=== PATIENT | male | born 1955 | race Caucasian/White ===

== ENCOUNTER 2020-11-24 09:41 | Emergency (ER) | payer BC, SELFPAY ==
--- NOTE | 2020-11-24 09:43 | ED.URI ---
HPI - URI/Sore Throat General Chief Complaint: Upper Respiratory Infection Stated Complaint: WHITE PATCHES IN THROAT Time Seen by Provider: 11/24/20 09:56 Source: patient and RN notes reviewed Mode of arrival: ambulatory Limitations: no limitations History of Present Illness HPI Narrative: 65-year-old male presents with concern for sore throat. Reports 6-day history of sore throat, recently noticed white patches in his throat. Reports he does not have tonsils, has had a tonsillectomy. Reports he is currently finishing a dose of Augmentin that he received for a stye in his eye. Reports he has 2 days left in his course of antibiotics. Reports he has been fully vaccinated for Covid, receiving his last vaccination more than 2 weeks ago. He denies fever, body aches, chills, sweats, cough, shortness of breath. Reports he has been using Flonase, possibly overusing Flonase doing 3-4 pumps in each nostril. Reports he is also been taking an antihistamine. MD elicited complaint: sore throat Related Data Allergies Allergy/AdvReac Type Severity Reaction Status Date / Time cephalexin Allergy Unknown possible Verified 11/10/20 11:22 rash Review of Systems Review of Systems: Narrative: CONSTITUTIONAL: Denies malaise, chills, sweats, or fever. EYES: Denies visual changes, redness, or discharge. ENT: Denies rhinorrhea, congestion, sinus pain, otalgia. Reports sore throat. CARDIOVASCULAR: Denies chest pain, palpitations, or edema. RESPIRATORY: Denies cough or dyspnea. GASTROINTESTINAL: Denies abdominal pain, nausea, vomiting, diarrhea SKIN: Denies rash or itching. MUSCULOSKELETAL: Denies myalgia. NEUROLOGIC: Denies headache. All systems reviewed & are unremarkable except as noted in HPI and below PMFSH Family History Family History Mother Family history of multiple sclerosis Family history of osteoporosis Family history of elevated blood lipids Father Diabetes mellitus Family history of elevated blood lipids Family history of malignant neoplasm, Onset Age: 60 Grandparent Family history of cardiovascular disease Cerebrovascular accident Other Family history of lung cancer Social History Social History Alcohol intake: current Comments At time of signature, agree with nursing past medical, surgical, social and family history. There is no relevant family history pertinent to the presenting complaint Exam Narrative: Exam Narrative: GENERAL: Well-appearing, well-nourished, and in no acute distress. HEAD: Normocephalic EYES: PERRLA, conjunctivae clear ENT: Nares clear, turbinates erythematous, clear discharge. Mucous membranes moist. TM pearly carmen with sharp light reflex bilaterally; no tragal tenderness. Oropharynx not erythematous without lesions. Tonsils not present, no exudate, no drooling, no hoarseness, no trismus, uvula midline. NECK: Supple. No lymphadenopathy CHEST: Clear to auscultation, breath sounds equal. No wheezing, rhonchi, rales, or stridor. No respiratory distress, speaks in full sentences. HEART: Regular rate and rhythm. No murmur heard. SKIN: Warm, dry, no rash. NEURO: Alert and oriented x3. PSYCH: Normal mood and affect Course Course Emergency Course: Patient is aware of diagnosis, understands and agrees to treatment plan. Anticipatory guidance given. Patient agrees to follow-up as directed and is aware of reasons to seek care at the emergency department. Portions of this record may have been created with voice recognition software Vital Signs Vital signs: Vital Signs Temperature 97.9 F 11/24/20 09:49 Pulse Rate 84 11/24/20 09:49 Respiratory Rate 16 11/24/20 09:49 Blood Pressure 129/81 11/24/20 09:49 Pulse Oximetry 98 11/24/20 09:49 Temperature 97.9 F 11/24/20 09:49 Pulse Rate 84 11/24/20 09:49 Respiratory Rate 16 11/24/20 09:49 Blood Pressure 129
[2020-11-24 09:49] VITALS: BP 129/81; PULSE 84; RESP 16; TEMP 36.6; O2SAT 98
== END 2020-11-24 10:15 | disposition home or self-care (01) ==
PROVIDERS: Emergency Provider Nurse Practitioner; PCP Family Medicine
DX: J02.9 Acute pharyngitis, unspecified (principal); E78.00 Pure hypercholesterolemia, unspecified; E03.9 Hypothyroidism, unspecified
CPT/HCPCS: 87081; 87880; 99213; G0463

== ENCOUNTER 2021-01-15 10:38 | Emergency (ER) | payer BC, SELFPAY ==
[2021-01-15 10:45] VITALS: BP 119/69; PULSE 68; RESP 18; TEMP 36.5; O2SAT 99
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
== END 2021-01-15 11:32 | disposition home or self-care (01) ==
PROVIDERS: Emergency Provider Nurse Practitioner; PCP Family Medicine
DX: S39.012A Strain of muscle, fascia and tendon of lower back, initial encounter (principal); X50.0XXA Overexertion from strenuous movement or load, initial encounter; T20.40XA Corrosion of unspecified degree of head, face, and neck, unspecified site, initial encounter; E78.00 Pure hypercholesterolemia, unspecified; E03.9 Hypothyroidism, unspecified
CPT/HCPCS: 99213; A9270; G0463

== ENCOUNTER 2021-02-16 01:25 | Day surgery (SDC) | payer BC, SELFPAY ==
[2021-02-02 11:22] VITALS: BMI 27.1
[2021-02-16 11:09] VITALS: BP 118/82; PULSE 72; RESP 18; TEMP 35.7; O2SAT 98
--- NOTE | 2021-02-16 11:16 | WPDGICN ---
Assessment and Plan Assessment and plan (1) Encounter for screening colonoscopy: Code(s): Z12.11 - Encounter for screening for malignant neoplasm of colon Status: Acute Assessment and Plan: Is been sometime since last colonoscopy. Plan is for screening colonoscopy at this time. Further recommendations will be given after endoscopy. (2) Change in bowel habit: Code(s): R19.4 - Change in bowel habit Status: Acute Assessment and Plan: Patient has change in bowel habits include narrowed stool cramps and some weight loss. Plan is for colonoscopy excluded cancer. Irritable bowel syndrome is also not excluded. High fiber supplements may be a beneficial if endoscopy is unremarkable. Further recommendations will be given after colonoscopy. GI Consult Note Consult date/time: 02/16/21 11:16 HPI: Jaleel Guerrier is a 65 year old male Complains of alteration in his bowel habits. He is referred for screening colonoscopy. Patient reports that since April of last year his stools have been narrowed he notices occasional cramping in his abdomen. Often in the left lower quadrant. Several weeks ago he had 2 episodes where a spot of bright red blood was noticed in his bowel movement. Patient reports over the last year is loss perhaps 30 lb because he is eating less. He was advised to try fiber. But after taking this 1 day he stopped because of cramps. Patient noticed a little bit of mucus in his stools on occasion. Patient states he has had several previous colonoscopies that were unremarkable. He is quite concerned about the cramps and change in bowel habits in is referred today for colonoscopy. Review of Systems Review of Systems: All systems reviewed & are unremarkable except as noted in HPI and below PMFSH Family History Family History Mother Family history of multiple sclerosis Family history of osteoporosis Family history of elevated blood lipids Father Diabetes mellitus Family history of elevated blood lipids Family history of malignant neoplasm, Onset Age: 60 Grandparent Family history of cardiovascular disease Cerebrovascular accident Other Family history of lung cancer Social History Social History Alcohol intake: current Substance use type: does not use Living arrangements: with family Gender identity (if verbalized by the patient): Male Meds Home Medications and Allergies Home Medications Medication Instructions Recorded Confirmed Type simvastatin 20 mg tablet 20 mg PO DAILY #90 tablet 09/22/19 02/02/21 Rx alprazolam 0.25 mg tablet 0.25 mg PO TID PRN #30 tablet 10/30/20 02/02/21 Rx aspirin [Adult Low Dose Aspirin] 81 mg PO DAILY 01/15/21 02/02/21 History cyclobenzaprine 10 mg PO TID PRN #20 tablet 01/15/21 02/02/21 Rx levothyroxine [Euthyrox] 100 mcg PO DAILY 02/02/21 02/02/21 History Allergies Allergy/AdvReac Type Severity Reaction Status Date / Time cephalexin Allergy Unknown possible Verified 02/16/21 11:07 rash Vital Signs Vital Signs - 24 hr 02/16/21 11:09 Temperature 96.3 F L Pulse Rate 72 Respiratory Rate 18 Blood Pressure 118/82 Pulse Oximetry 98 Exam Narrative: Exam Narrative: Physical exam reveals patient be alert. Vital signs stable. HEENT exam is unremarkable. Patient is anicteric. Lungs are clear to auscultation and percussion. Heart is without murmur or extra sounds. Abdominal exam bowel sounds are present soft nontender with no hepatosplenomegaly. Digital external rectal exam is normal.
[2021-02-16] MEDS: LACTATED RINGERS 1,000 ML 150 ML IV CONT (11:19)
--- NOTE | 2021-02-16 11:37 | WPDANESEPPF ---
Anes - Initial Pre Proc Eval Procedure: Operation Date: 02/16/21 12:00 Proposed Procedures p Screening Colonoscopy - Jamal Nelson MD Date/Time: 02/16/21 11:37 Surgeon: Jamal Nelson MD Pre Op Diagnosis: neoplasm screening Patient Data Age: 65 Gender: M Height: 1.73 m Weight: 77.7 kg Last Vital Signs Temp 96.3 F L 02/16/21 11:09 Pulse 72 02/16/21 11:09 Resp 18 02/16/21 11:09 BP 118/82 02/16/21 11:09 Pulse Ox 98 02/16/21 11:09 Allergies Allergy/AdvReac Type Severity Reaction Status Date / Time cephalexin Allergy Unknown possible Verified 02/16/21 11:07 rash Home Medications Medication Instructions Recorded Confirmed Type simvastatin 20 mg tablet 20 mg PO DAILY #90 tablet 09/22/19 02/02/21 Rx alprazolam 0.25 mg tablet 0.25 mg PO TID PRN #30 tablet 10/30/20 02/02/21 Rx aspirin [Adult Low Dose Aspirin] 81 mg PO DAILY 01/15/21 02/02/21 History cyclobenzaprine 10 mg PO TID PRN #20 tablet 01/15/21 02/02/21 Rx levothyroxine [Euthyrox] 100 mcg PO DAILY 02/02/21 02/02/21 History Patient hx anesthesia problems: none Family hx anesthesia problems: none PMFSH Past Medical History Medical History (Updated 02/16/21 @ 11:24 by Himanshu Jauregui MD) Arthritis Hypothyroid Hypothyroidism, unspecified Obstructive sleep apnea (adult) (pediatric) Other hyperlipidemia Family History Family History Mother Family history of multiple sclerosis Family history of osteoporosis Family history of elevated blood lipids Father Diabetes mellitus Family history of elevated blood lipids Family history of malignant neoplasm, Onset Age: 60 Grandparent Family history of cardiovascular disease Cerebrovascular accident Other Family history of lung cancer Social History Social History Alcohol intake: current Substance use type: does not use Living arrangements: with family Gender identity (if verbalized by the patient): Male Anes - Eval Final PreProcedure Day of Procedure 02/16/21 11:37 Patient weight: normal Heart: regular rate and rhythm Lungs: clear to auscultation Airway: Mallampati scale class II Neurological: alert and oriented Last oral intake: >/= 8 hours ASA classification: III Emergent: no Anesthetic plan: proceed Anesthesia type and monitoring: general GIVS and standard monitoring Informed Consent: The patient's anesthetic plan and its attendant risks and benefits were discussed with the patient/family/POA. Questions were solicited and answers provided to the satisfaction of the patient/family/POA.
[2021-02-16 12:02] VITALS: BP 105/60; PULSE 75; RESP 16; O2SAT 96
[2021-02-16 12:12] VITALS: BP 114/64; PULSE 73; RESP 19; O2SAT 97
[2021-02-16 12:22] VITALS: BP 119/79; PULSE 75; RESP 24; O2SAT 97
[2021-02-16 12:32] VITALS: BP 122/84; PULSE 68; RESP 16; O2SAT 98
== END 2021-02-16 12:47 | disposition home or self-care (01) ==
PROVIDERS: PCP Family Medicine; Visit Provider Internal Medicine Gastroenterology
PROC: 0DJD8ZZ Inspection of Lower Intestinal Tract, Via Natural or Artificial Opening Endoscopic (ICD-10-PCS; CPT 45378; principal; 2021-02-16 12:00)
DX: Z12.11 Encounter for screening for malignant neoplasm of colon (principal); R19.4 Change in bowel habit; Z79.82 Long term (current) use of aspirin; E03.9 Hypothyroidism, unspecified; M19.90 Unspecified osteoarthritis, unspecified site; G47.33 Obstructive sleep apnea (adult) (pediatric); E78.5 Hyperlipidemia, unspecified
CPT/HCPCS: 45378; J2704; J7120

== ENCOUNTER 2021-12-14 12:02 | Outpatient (CLI) | payer BC, SELFPAY ==
--- NOTE | ~2021-12-14 | XR_ITS ---
XR shoulder LT min 2V 12/14/2021 12:22 Indication: Left shoulder pain Procedure: 4 views left shoulder Comparison: No prior studies for comparison. Findings: No fracture, subluxation or dislocation. No significant soft tissue abnormality. No foreign bodies. There is anatomic alignment. Impression: 1: No significant bone or joint abnormality. Reviewed, dictated and finalized at location B. Impression: 1: No significant bone or joint abnormality.
== END 2021-12-14 12:03 | disposition home or self-care (01) ==
PROVIDERS: PCP Family Medicine; Visit Provider Physician Assistant
DX: M25.512 Pain in left shoulder (principal)
CPT/HCPCS: 73030

== ENCOUNTER 2022-01-21 13:35 | Emergency (ER) | payer BC, SELFPAY ==
[2022-01-21 13:42] VITALS: BP 117/73; PULSE 71; RESP 18; TEMP 37.2; O2SAT 99
--- NOTE | 2022-01-21 14:25 | ED.BACK ---
HPI - Back Pain/Injury General Chief Complaint: Back Pain/Injury Stated Complaint: back pain Time Seen by Provider: 01/21/22 14:14 Source: patient Mode of arrival: ambulatory Limitations: no limitations History of Present Illness HPI Narrative: Patient presents today complaining of waking up yesterday morning with low back pain bilaterally. States his pain today is slightly improved since yesterday. The day prior to onset of symptoms, he had increased the amount of weight he was lifting at home and the amount of repetitions, and believes this may have contributed to his pain, although he cannot pinpoint an exact injury or trauma. Denies radiation of the pain. Denies numbness or tingling in his legs or feet, or genitals. Denies any loss of bowel or bladder control. He currently rates his pain 5/10, which increases significantly when he moves from sitting to standing position. He takes naproxen on a daily basis, and cannot say that it is working for his acute pain. Related Data Home Medications Medication Instructions Recorded Confirmed aspirin 81 mg tablet 81 mg PO DAILY 01/15/21 01/21/22 cholecalciferol (vitamin D3) 50 50 mcg PO DAILY 03/09/21 01/21/22 mcg (2,000 unit) chewable tablet fluticasone propionate 50 2 spray intranasal DAILY 03/09/21 01/21/22 mcg/actuation nasal spray,suspension (Flonase Allergy Relief) loratadine 10 mg tablet (Claritin) 10 mg PO DAILY 03/09/21 01/21/22 magnesium oxide 400 mg PO DAILY 03/09/21 01/21/22 kuyzgkyvrjea-ysh-abrzf acid-vit 1 tablet PO DAILY 03/09/21 01/21/22 K-lycop 400 mcg-20 mcg-370 mcg tablet (Men's 50 Plus Multivitamin) naproxen sodium 220 mg capsule 220 mg PO BID 03/09/21 01/21/22 vitamin B complex 1 cap PO DAILY 03/09/21 01/21/22 Allergies Allergy/AdvReac Type Severity Reaction Status Date / Time cephalexin Allergy Unknown possible Verified 01/21/22 13:50 rash Review of Systems Review of Systems: CONSTITUTIONAL: Denies body aches, fever, chills, or sweats. EYES: Denies visual changes, redness, or discharge. ENT: Denies rhinorrhea, congestion, sore throat, or otalgia. CARDIOVASCULAR: Denies chest pain, palpitations, or edema. RESPIRATORY: Denies cough or dyspnea. GASTROINTESTINAL: Denies abdominal pain, nausea, vomiting, or diarrhea. GENITOURINARY: Denies dysuria or hematuria. SKIN: Denies rash, itching, or wounds. MUSCULOSKELETAL: Denies joint pain, or myalgia.+ Low back pain NEUROLOGIC: Denies headache, numbness, tingling, or weakness. PSYCH: Denies depression or anxiety. PMFSH Past Medical History Medical History Arthritis Hypothyroid Hypothyroidism, unspecified Obstructive sleep apnea (adult) (pediatric) Other hyperlipidemia Family History Family History Mother Family history of multiple sclerosis Family history of osteoporosis Family history of elevated blood lipids Father Diabetes mellitus Family history of elevated blood lipids Family history of malignant neoplasm, Onset Age: 60 Grandparent Family history of cardiovascular disease Cerebrovascular accident Other Family history of lung cancer Social History Social History Second hand tobacco smoke exposure: No Alcohol intake: current Drinks per week: 3 Substance use type: does not use Gender identity (if verbalized by the patient): Male Comments At time of signature, I have reviewed and agree with nursing past medical, surgical, social and family history unless otherwise noted. Please see nursing chart for further information. There is no relevant family history pertinent to the presenting complaint Exam Narrative: GENERAL: Well-appearing, well-nourished, and in no acute distress. HEAD: Normocephalic, atraumatic. EYES: EOMI. No redness or drainage. Conjunctivae no
== END 2022-01-21 14:34 | disposition home or self-care (01) ==
PROVIDERS: Emergency Provider Nurse Practitioner
DX: S39.012A Strain of muscle, fascia and tendon of lower back, initial encounter (principal); X50.0XXA Overexertion from strenuous movement or load, initial encounter; M19.90 Unspecified osteoarthritis, unspecified site; E03.9 Hypothyroidism, unspecified; G47.33 Obstructive sleep apnea (adult) (pediatric); E78.49 Other hyperlipidemia
CPT/HCPCS: 99213; G0463

== ENCOUNTER 2022-02-15 16:21 | Outpatient (CLI) | payer BC, SELFPAY ==
--- NOTE | ~2022-02-15 | XR_ITS ---
XR lumbar spine 2-3V DATE: 02/15/2022 16:46 INDICATION: Lower back pain for 3 weeks. No known injury. TECHNIQUE: AP, lateral, coned lateral lumbosacral views COMPARISON: None FINDINGS: No fracture or bone destruction. The included lower thoracic and lumbar pedicles are intact . Mild degenerative disc disease at L5-S1. Lumbar interspaces appear well preserved. Alignment is a chr onic joints are intact. Surgical clips overlie the left pelvic area. IMPRESSION: Mild degenerative disc disease at L5-S1 Surgical clips overlie left pelvic area Reviewed, dictated and finalized at location B.
== END 2022-02-15 16:22 | disposition home or self-care (01) ==
PROVIDERS: PCP Family Medicine; Visit Provider Physician Assistant
DX: M47.817 Spondylosis without myelopathy or radiculopathy, lumbosacral region (principal)
CPT/HCPCS: 72100

== ENCOUNTER 2022-06-07 14:49 | Emergency (ER) | payer BC, SELFPAY ==
[2022-06-07 15:01] VITALS: BP 150/81; PULSE 78; RESP 16; TEMP 36.5; O2SAT 98
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
== END 2022-06-07 15:21 | disposition home or self-care (01) ==
PROVIDERS: Emergency Provider Nurse Practitioner; PCP Physician Assistant
DX: S01.512A Laceration without foreign body of oral cavity, initial encounter (principal); E03.9 Hypothyroidism, unspecified; W45.8XXA Other foreign body or object entering through skin, initial encounter
CPT/HCPCS: 99213; G0463

== ENCOUNTER 2022-07-22 12:45 | Outpatient (CLI) | payer BC, SELFPAY ==
--- NOTE | ~2022-07-22 | MR_ITS ---
MRI of the left shoulder Technique: Axial proton-density fat-sat images, coronal proton density fat-sat and T2 fat-sat images, and sagittal T1-weighted and T2 fat-sat images were acquired. Clinical History: Pain Findings: There is minimal degenerative change at the AC joint, without significant subacromial spur. Coracoclavicular, coracoacromial, and coracohumeral ligaments appear intact. There is mild tendinosis of the distal supraspinatus and infraspinatus tendons, without partial or fu ll-thickness tear. Subscapularis tendon is intact, with minimal tendinosis. The proximal biceps tendo n is completely ruptured, and retracted into the distal bicipital groove. No definite labral tear identified. Inferior glenohumeral ligament is intact. Small glenohumeral joint effusion present. No fluid distent ion of the subacromial/subdeltoid bursa. No muscle atrophy or edema. No significant degenerative enciso ge of the glenohumeral joint. Impression: Complete rupture of the proximal biceps tendon, which is retracted into the bicipital groove. Mild tendinosis of the distal supraspinatus and infraspinatus tendons, without partial or full-thickn ess tear. Reviewed, dictated and finalized at location . [facility] Impression: Complete rupture of the proximal biceps tendon, which is retracted into the bic ipital groove. Mild tendinosis of the distal supraspinatus and infraspinatus tendons, without partial or full-thickness tear.
== END 2022-07-22 12:46 | disposition home or self-care (01) ==
PROVIDERS: PCP Family Medicine; Visit Provider Orthopaedic Surgery
DX: M25.512 Pain in left shoulder (principal); M77.8 Other enthesopathies, not elsewhere classified
CPT/HCPCS: 73221

== ENCOUNTER 2023-02-24 14:09 | Emergency (ER) | payer MEDICARE, SELFPAY ==
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
[2023-02-24 14:23] VITALS: BP 136/77; PULSE 78; RESP 16; TEMP 36.6; O2SAT 99
== END 2023-02-24 14:58 | disposition home or self-care (01) ==
PROVIDERS: Emergency Provider Registered Nurse; PCP Family Medicine
DX: L08.9 Local infection of the skin and subcutaneous tissue, unspecified (principal); S70.362A Insect bite (nonvenomous), left thigh, initial encounter; W57.XXXA Bitten or stung by nonvenomous insect and other nonvenomous arthropods, initial encounter; K21.9 Gastro-esophageal reflux disease without esophagitis; E03.9 Hypothyroidism, unspecified; G47.33 Obstructive sleep apnea (adult) (pediatric); Z91.199 Patient's noncompliance with other medical treatment and regimen due to unspecified reason; E78.49 Other hyperlipidemia; E55.9 Vitamin D deficiency, unspecified
CPT/HCPCS: 99213; G0463

== ENCOUNTER 2023-03-04 08:50 | Outpatient (CLI) | payer MEDICARE, SELFPAY ==
--- NOTE | ~2023-03-04 | NM_ITS ---
EXAMINATION: NM stress w perf spect multi DATE: 03/04/2023 10:26 INDICATION: Other forms of dyspnea. TECHNIQUE: Rest images were obtained following intravenous administration of 9.6 mCi Tc99m tetrofosmi n (stickapps). The patient performed an exercise activity. At peak exercise, 30.2 mCi Tc99m tetrofosmin (Myoview) was administered intravenously, and stress images were obtained. Data was reconstructed in to short axis and horizontal and vertical long axis SPECT images. Gated SPECT images were also obtain ed. COMPARISON: None. FINDINGS: There is no definite reversible or fixed perfusion abnormality to suggest ischemia or infar ction. There is no segmental wall motion abnormality. Left ventricular ejection fraction measures > 70%. IMPRESSION: 1. No definite ischemia or infarct. 2. Normal left ventricular ejection fraction measuring >70%. Reviewed, dictated and finalized at location A.
--- NOTE | 2023-03-04 08:56 | EST_ITS ---
Patient Info Name: Jaleel Guerrier Age: 67 years : 1955 Gender: Male Ht: 68 in Wt: 177 lbs BSA: 1.98 m2 HR: 66 bpm BP: 144 / 91 mmHg Heart Rhythm: Sinus Rhythm Exam Date: 03/04/2023 9:40 AM Exam Location: [facility] Stress Patient Status: Outpatient Admit Date: 03/04/2023 Staff Ordering Physician: Stephen Abreu MD Attending Provider: Stephen Abreu MD Exercise Technologist: Clarissa Glover CT Exercise Physician: Min Nix DO Exam Type: CA stress test treadmill w NM Study Info Indications R06.00 - Dyspnea, unspecified R07.89 - Other chest pain A nuclear stress test was performed. Summary 1. 1. Negative Horacio exercise stress test for ischemic ST changes by ECG criteria. 2. 2. Good functional capacity, achieving 10 METs of workload. 3. 3. Hypertensive response to exercise. 4. 4. Appropriate HR response to exercise. 5. 5. Appropriate HR recovery at 1 minute post exercise. 6. 6. Nuclear scan to follow and will be reported separately. Please correlate with it. 7. 7. Patient informed of the above results. Protocol: Horacio Stress ECG Details Stage: REST Duration (min): 0 min : 56 sec Speed (mph): 0.0 Grade (%): 0 HR (bpm): 64 SBP (mmHg): 144 DBP (mmHg): 91 METS: --- Stage: REST Duration (min): 5 min : 51 sec Speed (mph): 0.0 Grade (%): 0 HR (bpm): 69 SBP (mmHg): 144 DBP (mmHg): 91 METS: --- Stage: REST Duration (min): 6 min : 20 sec Speed (mph): 0.0 Grade (%): 0 HR (bpm): 74 SBP (mmHg): 144 DBP (mmHg): 91 METS: --- Stage: REST Duration (min): 6 min : 50 sec Speed (mph): 0.0 Grade (%): 0 HR (bpm): 79 SBP (mmHg): 144 DBP (mmHg): 91 METS: --- Stage: STAGE 1 Duration (min): 1 min : 0 sec Speed (mph): 1.7 Grade (%): 10 HR (bpm): 86 SBP (mmHg): 144 DBP (mmHg): 91 METS: --- Stage: STAGE 1 Duration (min): 2 min : 0 sec Speed (mph): 1.7 Grade (%): 10 HR (bpm): 94 SBP (mmHg): 144 DBP (mmHg): 91 METS: --- Stage: STAGE 1 Duration (min): 3 min : 0 sec Speed (mph): 1.7 Grade (%): 10 HR (bpm): 91 SBP (mmHg): 178 DBP (mmHg): 76 METS: --- Stage: STAGE 2 Duration (min): 1 min : 0 sec Speed (mph): 2.5 Grade (%): 12 HR (bpm): 105 SBP (mmHg): 178 DBP (mmHg): 76 METS: --- Stage: STAGE 2 Duration (min): 2 min : 0 sec Speed (mph): 2.5 Grade (%): 12 HR (bpm): 113 SBP (mmHg): 201 DBP (mmHg): 78 METS: --- Stage: STAGE 2 Duration (min): 3 min : 0 sec Speed (mph): 2.5 Grade (%): 12 HR (bpm): 117 SBP (mmHg): 201 DBP (mmHg): 78 METS: --- Stage: STAGE 3 Duration (min): 1 min : 0 sec Speed (mph): 3.4 Grade (%): 14 HR (bpm): 128 SBP (mmHg): 199 DBP (mmHg): 84 METS: --- Stage: STAGE 3 Duration (min): 2 min : 0 sec Speed (mph): 3.4 Grade (%): 14 HR (bpm): 138 SBP (mmHg): 199 DBP (mmHg): 84 METS: --- Stage: STAGE 3 Duration (min): 2
== END 2023-03-04 08:51 | disposition home or self-care (01) ==
PROVIDERS: PCP Family Medicine; Visit Provider Family Medicine
DX: R06.09 Other forms of dyspnea (principal)
CPT/HCPCS: 78452; 93017; A9502